=== PATIENT | male | born 1990 | race Caucasian/White ===

== ENCOUNTER 2018-02-03 02:02 | Emergency (ER) | payer OTHER ==
[~2018-02-03] VITALS: Ht 175.3 cm; Wt 90.7 kg
--- NOTE | 2018-02-03 02:02 | NUR ---
PT.BIB [facility] TO ER FERN
[2018-02-03 02:03] VITALS: BP 162/93
--- NOTE | 2018-02-03 02:08 | NUR ---
27Y/F PT. BIB [facility] FOR PRE-BOOK, MEDICAL CLEARANCE, DUI. AAO X4, AMBULATORY WITH STEADY GAIT. RESPIRATIONS ROOM AIR, EVEN AND UNLABORED. NO APPARENT INJURY. C/O THROAT PAIN 09/07. VSS, ER MADE AWARE OF PT. STATUS.
--- NOTE | 2018-02-03 02:13 | NUR ---
Patient being evaluated by at bedside.
[2018-02-03 02:23] VITALS: BP 162/93
--- NOTE | 2018-02-03 02:23 | NUR ---
Patient discharged with v/s stable. Written and verbal after care instructions given and explained. Patient verbalized understanding. Ambulatory with steady gait. All questions addressed prior to discharge. Advised to follow up with PMD. P CUSTODY
--- NOTE | 2018-02-03 02:23 | NUR ---
PATIENT BIB [facility]. PATIENT EXAMINED BY DR. RIVERA. PATIENT MEDICALLY CLEARED AND RELEASED IN CUSTODY IN STABLE CONDITION. ORIGINAL PRE-BOOK FORM GIVEN TO OFFICER MARY JANE.
== END 2018-02-03 02:23 ==
LOC: MED 02:02
DX: Z02.89 Encounter for other administrative examinations (principal); R03.0 Elevated blood-pressure reading, without diagnosis of hypertension
CPT/HCPCS: 99283